=== PATIENT | female | born 1945 | race Asian ===

== ENCOUNTER 2018-04-21 18:05 | Emergency (ER) | payer MEDICARE, OTHER, MEDICAID ==
[2018-04-21] MEDS: HYDROCODONE/APAP (10/325) TAB PO (18:37)
[2018-04-21] MEDS: ONDANSETRON (ODT) 4 MG TAB ODT (18:37)
== END 2018-04-21 19:54 | disposition home or self-care (01) ==
LOC: E/R 18:05
DX: S49.92XA Unspecified injury of left shoulder and upper arm, initial encounter (principal); I10 Essential (primary) hypertension; W01.0XXA Fall on same level from slipping, tripping and stumbling without subsequent striking against object, initial encounter; Y92.9 Unspecified place or not applicable
CPT/HCPCS: 29105; 73030; 99283-25

== ENCOUNTER 2018-05-07 08:29 | Inpatient (IN) | payer MEDICARE, OTHER ==
[2018-05-07] MEDS: ONDANSETRON 4 MG INJ IV ×2 (09:31→19:19)
[2018-05-07] MEDS: SOD CHLORIDE 0.9% 1,000 ML IV (09:31)
[2018-05-07] MEDS: HYDROmorphONE 1 MG/ML SYG IV (09:31)
[2018-05-07 09:49] LABS: ADD MAN DIFF? NO
[2018-05-07 09:52] LABS: WHITE BLOOD COUNT 4.9 10^3/ul (4.8-10.8)
[2018-05-07 09:52] LABS: BASOPHIL # 0.1 10^3/ul (0.0-0.1); EOSINOPHILS % 0.6 % (0.0-7.0); HEMATOCRIT 40.5 % (37.0-47.0); HEMOGLOBIN 13.4 g/dl (12.0-16.0); LYMPHOCYTES # 1.5 10^3/ul (0.8-2.9); LYMPHOCYTES % 30.9 % (15.0-51.0); MEAN CORPUSCULAR HEMOGLOBIN 30.9 pg (29.0-33.0); MEAN CORPUSCULAR HGB CONC 33.1 g/dl (32.0-37.0); MEAN CORPUSCULAR VOLUME 93.3 fl (82.0-101.0); MEAN PLATELET VOLUME 9.7 fl (7.4-10.4); MONOCYTE # 0.4 10^3/ul (0.3-0.9); MONOCYTES % 7.6 % (0.0-11.0); NEUTROPHIL # 2.9 10^3/ul (1.6-7.5); NEUTROPHILS % 59.5 % (39.0-77.0); PLATELET COUNT 328 10^3/UL (140-415); RED BLOOD COUNT 4.34 10^6/ul (4.20-5.40)
[2018-05-07 10:31] LABS: ALANINE AMINOTRANSFERASE 36 IU/L (13-69); ALBUMIN 4.2 g/dl (3.3-4.9); ALBUMIN/GLOBULIN RATIO 1.16; ALKALINE PHOSPHATASE 131 IU/L (42-121); ANION GAP 12 (8-16); ASPARTATE AMINO TRANSFERASE 37 IU/L (15-46); BILIRUBIN,INDIRECT 0.7 mg/dl (0-1.1); BILIRUBIN,TOTAL 0.7 mg/dl (0.2-1.3); BLOOD UREA NITROGEN 16 mg/dl (7-20); CALCIUM 9.5 mg/dl (8.4-10.2); CARBON DIOXIDE 29 mmol/L (21-31); CHLORIDE 104 mmol/L (97-110); GLUCOSE 107 mg/dl (70-220); LIPASE 66 U/L (23-300); POTASSIUM 3.7 mmol/L (3.5-5.1); SODIUM 141 mmol/L (135-144); TOTAL PROTEIN 7.8 g/dl (6.1-8.1)
[2018-05-07] MEDS: IOHEXOL 300MG/ML 150 ML BTL (11:17)
[2018-05-07] MEDS: SOD CHLORIDE 0.9% 100 ML (11:17)
[2018-05-07] MEDS ORDERED: ACETAMINOPHEN 325 MG TAB PO (14:30)
[2018-05-07] MEDS ORDERED: ONDANSETRON 4 MG INJ IV (14:30)
[2018-05-07] MEDS ORDERED: NITROGLYCERIN (SL) 0.4 MG TAB SL (15:00)
[2018-05-07] MEDS ORDERED: ALBUTEROL/IPRATROPIUM (NEB) 3 ML AMP HHN (15:00)
[2018-05-07] MEDS ORDERED: NACL 0.9% 3 ML SYG IV (15:00)
[2018-05-07] MEDS ORDERED: hydrALAzine 20 MG INJ IV (15:00)
[2018-05-07] MEDS ORDERED: NA PHOSPHATE/BIPHOS 133 ML ENEMA PR (15:00)
[2018-05-07] MEDS ORDERED: morphine 2 MG INJ IV (15:00)
[2018-05-07 15:52] LABS: FREE T4 (FREE THYROXINE) 1.74 ng/dl (0.78-2.44)
[2018-05-07] MEDS: SOD CHLORIDE 0.45% 1,000 ML IV (18:52)
[2018-05-07] MEDS: PRAVASTATIN 20 MG TAB PO (20:09)
[2018-05-07] MEDS: HEPARIN 5,000 UNIT/0.5 ML VIAL SC (20:47)
[2018-05-07] MEDS ORDERED: NON-FORMULARY/PATIENT OWN MED (Pravastatin Sodium* 10 MG) PO (21:00)
[2018-05-07] MEDS: LORAZEPAM 2 MG INJ IV (22:48)
[2018-05-08] MEDS: SOD CHLORIDE 0.45% 1,000 ML IV ×3 (04:04→20:25)
[2018-05-08 05:12] LABS: ADD MAN DIFF? NO
[2018-05-08 05:14] LABS: WHITE BLOOD COUNT 5.7 10^3/ul (4.8-10.8)
[2018-05-08 05:14] LABS: BASOPHIL # 0.1 10^3/ul (0.0-0.1); BASOPHILS % 1.1 % (0.0-2.0); EOSINOPHILS % 0.5 % (0.0-7.0); HEMATOCRIT 37.5 % (37.0-47.0); HEMOGLOBIN 12.3 g/dl (12.0-16.0); LYMPHOCYTES % 35.9 % (15.0-51.0); MEAN CORPUSCULAR HEMOGLOBIN 30.2 pg (29.0-33.0); MEAN CORPUSCULAR HGB CONC 32.8 g/dl (32.0-37.0); MEAN CORPUSCULAR VOLUME 92.1 fl (82.0-101.0); MEAN PLATELET VOLUME 9.6 fl (7.4-10.4); MONOCYTE # 0.4 10^3/ul (0.3-0.9); MONOCYTES % 6.9 % (0.0-11.0); NEUTROPHIL # 3.1 10^3/ul (1.6-7.5); NEUTROPHILS % 55.4 % (39.0-77.0); PLATELET COUNT 280 10^3/UL (140-415); RED BLOOD COUNT 4.07 10^6/ul (4.20-5.40); RED CELL DISTRIBUTION WIDTH 12.1 % (11.5-14.5)
[2018-05-08 05:39] LABS: HEMOGLOBIN A1C 5.7 % (0-5.9)
[2018-05-08 05:46] LABS: ANION GAP 10 (8-16); BLOOD UREA NITROGEN 15 mg/dl (7-20); CALCIUM 8.9 mg/dl (8.4-10.2); CARBON DIOXIDE 26 mmol/L (21-31); CHLORIDE 106 mmol/L (97-110); CREATININE 0.61 mg/dl (0.44-1.00); GLUCOSE 80 mg/dl (70-220); PHOSPHORUS 3.2 mg/dl (2.5-4.9); POTASSIUM 3.6 mmol/L (3.5-5.1); SODIUM 138 mmol/L (135-144)
[2018-05-08 05:49] LABS: CHOL/HDL RATIO 2.4 RATIO; HDL CHOLESTEROL 70 mg/dl (33-92); LDL CHOLESTEROL,CALCULATED 84 mg/dl; TRIGLYCERIDES 73 mg/dl (0-149)
[2018-05-08 05:49] LABS: CHOLESTEROL 169 mg/dl (100-200)
[2018-05-08 06:12] LABS: THYROID STIMULATING HORMONE 0.715 MIU/L (0.465-4.680)
[2018-05-08] MEDS: PANTOPRAZOLE 40 MG INJ IV (06:56)
[2018-05-08] MEDS: CLOPIDOGREL 75 MG TAB PO (09:04)
[2018-05-08] MEDS: LOSARTAN 50 MG TAB PO (09:05)
[2018-05-08] MEDS: AMLODIPINE 5 MG TAB PO (09:05)
[2018-05-08] MEDS: HEPARIN 5,000 UNIT/0.5 ML VIAL SC ×2 (09:06→20:25)
[2018-05-08] MEDS: SUCRALFATE (100 MG/ML) 10ML CUP PO ×3 (13:07→20:25)
[2018-05-08] MEDS: ONDANSETRON 4 MG INJ IV (14:44)
[2018-05-08] MEDS ORDERED: morphine LIQ (10 MG/5 ML) CUP PO (19:00)
[2018-05-08] MEDS: PRAVASTATIN 20 MG TAB PO (20:25)
[2018-05-09 05:43] LABS: ADD MAN DIFF? NO
[2018-05-09 05:51] LABS: BASOPHIL # 0.1 10^3/ul (0.0-0.1); BASOPHILS % 0.8 % (0.0-2.0); EOSINOPHILS # 0.1 10^3/ul (0.0-0.5); HEMOGLOBIN 11.9 g/dl (12.0-16.0); LYMPHOCYTES # 2.4 10^3/ul (0.8-2.9); LYMPHOCYTES % 39.5 % (15.0-51.0); MEAN CORPUSCULAR HEMOGLOBIN 30.1 pg (29.0-33.0); MEAN CORPUSCULAR HGB CONC 33.1 g/dl (32.0-37.0); MEAN CORPUSCULAR VOLUME 91.1 fl (82.0-101.0); MEAN PLATELET VOLUME 9.6 fl (7.4-10.4); MONOCYTE # 0.4 10^3/ul (0.3-0.9); MONOCYTES % 6.5 % (0.0-11.0); NEUTROPHIL # 3.1 10^3/ul (1.6-7.5); NEUTROPHILS % 51.9 % (39.0-77.0); PLATELET COUNT 262 10^3/UL (140-415); RED BLOOD COUNT 3.95 10^6/ul (4.20-5.40); RED CELL DISTRIBUTION WIDTH 11.9 % (11.5-14.5)
[2018-05-09] MEDS: PANTOPRAZOLE 40 MG INJ IV (05:56)
[2018-05-09] MEDS: HYDROCODONE/APAP (5/325) TAB PO (05:56)
[2018-05-09] MEDS: ONDANSETRON 4 MG INJ IV (06:04)
[2018-05-09 06:07] LABS: ANION GAP 8 (8-16); BLOOD UREA NITROGEN 12 mg/dl (7-20); CARBON DIOXIDE 26 mmol/L (21-31); CHLORIDE 107 mmol/L (97-110); CREATININE 0.61 mg/dl (0.44-1.00); GLUCOSE 95 mg/dl (70-220); POTASSIUM 3.6 mmol/L (3.5-5.1); SODIUM 137 mmol/L (135-144)
[2018-05-09 06:20] LABS: MAGNESIUM 1.8 mg/dl (1.7-2.5)
[2018-05-09] MEDS: HEPARIN 5,000 UNIT/0.5 ML VIAL SC ×2 (08:29→21:01)
[2018-05-09] MEDS: AMLODIPINE 5 MG TAB PO (08:30)
[2018-05-09] MEDS: CLOPIDOGREL 75 MG TAB PO (08:30)
[2018-05-09] MEDS: SUCRALFATE (100 MG/ML) 10ML CUP PO ×4 (08:31→21:00)
[2018-05-09] MEDS: LOSARTAN 50 MG TAB PO (08:31)
[2018-05-09] MEDS: SOD CHLORIDE 0.45% 1,000 ML IV (10:48)
[2018-05-09] MEDS: PRAVASTATIN 20 MG TAB PO (21:00)
[2018-05-09] MEDS: LORAZEPAM 2 MG INJ IV (21:00)
[2018-05-10] MEDS: PANTOPRAZOLE 40 MG INJ IV (05:37)
[2018-05-10 07:06] LABS: ADD MAN DIFF? NO
[2018-05-10 07:09] LABS: WHITE BLOOD COUNT 5.5 10^3/ul (4.8-10.8)
[2018-05-10 07:09] LABS: BASOPHILS % 0.5 % (0.0-2.0); EOSINOPHILS # 0.1 10^3/ul (0.0-0.5); EOSINOPHILS % 1.3 % (0.0-7.0); HEMATOCRIT 37.3 % (37.0-47.0); HEMOGLOBIN 12.5 g/dl (12.0-16.0); LYMPHOCYTES % 35.9 % (15.0-51.0); MEAN CORPUSCULAR HEMOGLOBIN 30.3 pg (29.0-33.0); MEAN CORPUSCULAR HGB CONC 33.5 g/dl (32.0-37.0); MEAN CORPUSCULAR VOLUME 90.5 fl (82.0-101.0); MEAN PLATELET VOLUME 9.7 fl (7.4-10.4); MONOCYTE # 0.4 10^3/ul (0.3-0.9); MONOCYTES % 7.6 % (0.0-11.0); NEUTROPHILS % 54.5 % (39.0-77.0); PLATELET COUNT 267 10^3/UL (140-415); RED BLOOD COUNT 4.12 10^6/ul (4.20-5.40); RED CELL DISTRIBUTION WIDTH 12.1 % (11.5-14.5)
[2018-05-10 07:35] LABS: ANION GAP 11 (8-16); BLOOD UREA NITROGEN 11 mg/dl (7-20); CALCIUM 9.1 mg/dl (8.4-10.2); CARBON DIOXIDE 28 mmol/L (21-31); CHLORIDE 105 mmol/L (97-110); GLUCOSE 105 mg/dl (70-220); POTASSIUM 3.5 mmol/L (3.5-5.1); SODIUM 140 mmol/L (135-144)
[2018-05-10] MEDS: SUCRALFATE (100 MG/ML) 10ML CUP PO ×4 (08:47→20:38)
[2018-05-10] MEDS: LOSARTAN 50 MG TAB PO (08:47)
[2018-05-10] MEDS: CLOPIDOGREL 75 MG TAB PO (08:47)
[2018-05-10] MEDS: AMLODIPINE 5 MG TAB PO (08:48)
[2018-05-10] MEDS: HEPARIN 5,000 UNIT/0.5 ML VIAL SC ×2 (08:50→20:40)
[2018-05-10] MEDS: POTASSIUM CHLORIDE (SR) 20 MEQ TAB PO (09:49)
[2018-05-10] MEDS: PRAVASTATIN 20 MG TAB PO (20:38)
[2018-05-11 05:35] LABS: ADD MAN DIFF? NO
[2018-05-11 05:47] LABS: BASOPHILS % 0.8 % (0.0-2.0); EOSINOPHILS # 0.1 10^3/ul (0.0-0.5); EOSINOPHILS % 1.4 % (0.0-7.0); HEMATOCRIT 38.3 % (37.0-47.0); HEMOGLOBIN 12.9 g/dl (12.0-16.0); LYMPHOCYTES # 2.6 10^3/ul (0.8-2.9); LYMPHOCYTES % 51.5 % (15.0-51.0); MEAN CORPUSCULAR HEMOGLOBIN 30.9 pg (29.0-33.0); MEAN CORPUSCULAR HGB CONC 33.7 g/dl (32.0-37.0); MEAN CORPUSCULAR VOLUME 91.8 fl (82.0-101.0); MONOCYTE # 0.3 10^3/ul (0.3-0.9); MONOCYTES % 6.9 % (0.0-11.0); NEUTROPHIL # 1.9 10^3/ul (1.6-7.5); NEUTROPHILS % 39.2 % (39.0-77.0); PLATELET COUNT 276 10^3/UL (140-415); RED BLOOD COUNT 4.17 10^6/ul (4.20-5.40); RED CELL DISTRIBUTION WIDTH 12.2 % (11.5-14.5)
[2018-05-11] MEDS: PANTOPRAZOLE 40 MG INJ IV (05:49)
[2018-05-11 06:39] LABS: ANION GAP 11 (8-16); BLOOD UREA NITROGEN 14 mg/dl (7-20); CALCIUM 9.5 mg/dl (8.4-10.2); CARBON DIOXIDE 29 mmol/L (21-31); CHLORIDE 104 mmol/L (97-110); CREATININE 0.65 mg/dl (0.44-1.00); GLUCOSE 105 mg/dl (70-220); SODIUM 140 mmol/L (135-144)
[2018-05-11] MEDS: CLOPIDOGREL 75 MG TAB PO (08:55)
[2018-05-11] MEDS: HEPARIN 5,000 UNIT/0.5 ML VIAL SC ×2 (08:56→20:44)
[2018-05-11] MEDS: SUCRALFATE (100 MG/ML) 10ML CUP PO ×4 (08:57→20:38)
[2018-05-11] MEDS: LOSARTAN 50 MG TAB PO (08:57)
[2018-05-11] MEDS: AMLODIPINE 5 MG TAB PO (08:57)
[2018-05-11] MEDS: MAGNESIUM HYDROXIDE 30ML CUP PO (10:32)
[2018-05-11] MEDS: DOCUSATE SODIUM 100 MG CAP PO (13:52)
[2018-05-11] MEDS: ACETAMINOPHEN 325 MG TAB PO (20:38)
[2018-05-11] MEDS: PRAVASTATIN 20 MG TAB PO (20:41)
[2018-05-12] MEDS: PANTOPRAZOLE 40 MG INJ IV (05:44)
[2018-05-12 05:57] LABS: ADD MAN DIFF? NO
[2018-05-12 06:02] LABS: BASOPHILS % 0.7 % (0.0-2.0); EOSINOPHILS # 0.1 10^3/ul (0.0-0.5); EOSINOPHILS % 1.6 % (0.0-7.0); HEMATOCRIT 38.2 % (37.0-47.0); HEMOGLOBIN 12.8 g/dl (12.0-16.0); LYMPHOCYTES # 2.7 10^3/ul (0.8-2.9); LYMPHOCYTES % 48.6 % (15.0-51.0); MEAN CORPUSCULAR HEMOGLOBIN 30.6 pg (29.0-33.0); MEAN CORPUSCULAR HGB CONC 33.5 g/dl (32.0-37.0); MEAN CORPUSCULAR VOLUME 91.4 fl (82.0-101.0); MEAN PLATELET VOLUME 10.3 fl (7.4-10.4); MONOCYTE # 0.4 10^3/ul (0.3-0.9); MONOCYTES % 6.4 % (0.0-11.0); NEUTROPHIL # 2.4 10^3/ul (1.6-7.5); NEUTROPHILS % 42.3 % (39.0-77.0); PLATELET COUNT 264 10^3/UL (140-415); RED BLOOD COUNT 4.18 10^6/ul (4.20-5.40); RED CELL DISTRIBUTION WIDTH 12.4 % (11.5-14.5)
[2018-05-12 06:02] LABS: WHITE BLOOD COUNT 5.6 10^3/ul (4.8-10.8)
[2018-05-12 06:33] LABS: ANION GAP 16 (8-16); BLOOD UREA NITROGEN 15 mg/dl (7-20); CALCIUM 9.3 mg/dl (8.4-10.2); CARBON DIOXIDE 28 mmol/L (21-31); CHLORIDE 104 mmol/L (97-110); GLUCOSE 102 mg/dl (70-220); POTASSIUM 4.1 mmol/L (3.5-5.1); SODIUM 144 mmol/L (135-144)
[2018-05-12] MEDS: CLOPIDOGREL 75 MG TAB PO (09:02)
[2018-05-12] MEDS: SUCRALFATE (100 MG/ML) 10ML CUP PO ×4 (09:02→21:24)
[2018-05-12] MEDS: AMLODIPINE 5 MG TAB PO (09:03)
[2018-05-12] MEDS: LOSARTAN 50 MG TAB PO (09:03)
[2018-05-12] MEDS: HEPARIN 5,000 UNIT/0.5 ML VIAL SC ×2 (09:06→21:26)
[2018-05-12] MEDS: PRAVASTATIN 20 MG TAB PO (21:24)
[2018-05-12] MEDS: ACETAMINOPHEN 325 MG TAB PO (21:24)
[2018-05-13 05:11] LABS: ADD MAN DIFF? NO; BASOPHILS % 0.8 % (0.0-2.0); EOSINOPHILS # 0.1 10^3/ul (0.0-0.5); EOSINOPHILS % 1.5 % (0.0-7.0); HEMATOCRIT 40.3 % (37.0-47.0); HEMOGLOBIN 13.3 g/dl (12.0-16.0); LYMPHOCYTES # 2.4 10^3/ul (0.8-2.9); LYMPHOCYTES % 44.4 % (15.0-51.0); MEAN CORPUSCULAR HEMOGLOBIN 30.5 pg (29.0-33.0); MEAN CORPUSCULAR VOLUME 92.4 fl (82.0-101.0); MONOCYTE # 0.4 10^3/ul (0.3-0.9); MONOCYTES % 6.8 % (0.0-11.0); NEUTROPHIL # 2.4 10^3/ul (1.6-7.5); NEUTROPHILS % 46.1 % (39.0-77.0); PLATELET COUNT 285 10^3/UL (140-415); RED BLOOD COUNT 4.36 10^6/ul (4.20-5.40); RED CELL DISTRIBUTION WIDTH 12.2 % (11.5-14.5)
[2018-05-13 05:11] LABS: WHITE BLOOD COUNT 5.3 10^3/ul (4.8-10.8)
[2018-05-13] MEDS: PANTOPRAZOLE 40 MG INJ IV (05:33)
[2018-05-13 05:42] LABS: ANION GAP 10 (8-16); BLOOD UREA NITROGEN 21 mg/dl (7-20); CALCIUM 9.9 mg/dl (8.4-10.2); CARBON DIOXIDE 28 mmol/L (21-31); CHLORIDE 105 mmol/L (97-110); CREATININE 0.77 mg/dl (0.44-1.00); GLUCOSE 111 mg/dl (70-220); POTASSIUM 4.4 mmol/L (3.5-5.1); SODIUM 139 mmol/L (135-144)
[2018-05-13] MEDS: SUCRALFATE (100 MG/ML) 10ML CUP PO ×4 (08:50→21:29)
[2018-05-13] MEDS: CLOPIDOGREL 75 MG TAB PO (08:50)
[2018-05-13] MEDS: LOSARTAN 50 MG TAB PO (08:50)
[2018-05-13] MEDS: HEPARIN 5,000 UNIT/0.5 ML VIAL SC ×2 (08:53→21:46)
[2018-05-13] MEDS: ACETAMINOPHEN 325 MG TAB PO (08:58)
[2018-05-13] MEDS: PRAVASTATIN 20 MG TAB PO (21:29)
[2018-05-14] MEDS: PANTOPRAZOLE 40 MG INJ IV (05:52)
[2018-05-14 06:05] LABS: ADD MAN DIFF? NO
[2018-05-14 06:14] LABS: BASOPHILS % 0.7 % (0.0-2.0); EOSINOPHILS # 0.1 10^3/ul (0.0-0.5); EOSINOPHILS % 1.4 % (0.0-7.0); HEMOGLOBIN 13.5 g/dl (12.0-16.0); LYMPHOCYTES # 2.6 10^3/ul (0.8-2.9); LYMPHOCYTES % 45.3 % (15.0-51.0); MEAN CORPUSCULAR HEMOGLOBIN 30.8 pg (29.0-33.0); MEAN CORPUSCULAR HGB CONC 32.9 g/dl (32.0-37.0); MEAN CORPUSCULAR VOLUME 93.6 fl (82.0-101.0); MEAN PLATELET VOLUME 10.4 fl (7.4-10.4); MONOCYTE # 0.4 10^3/ul (0.3-0.9); MONOCYTES % 6.3 % (0.0-11.0); NEUTROPHIL # 2.6 10^3/ul (1.6-7.5); NEUTROPHILS % 46.1 % (39.0-77.0); PLATELET COUNT 293 10^3/UL (140-415); RED BLOOD COUNT 4.38 10^6/ul (4.20-5.40); RED CELL DISTRIBUTION WIDTH 12.5 % (11.5-14.5)
[2018-05-14 06:14] LABS: WHITE BLOOD COUNT 5.7 10^3/ul (4.8-10.8)
[2018-05-14] MEDS: ACETAMINOPHEN 325 MG TAB PO ×2 (06:18→17:28)
[2018-05-14 06:48] LABS: ANION GAP 15 (8-16); BLOOD UREA NITROGEN 22 mg/dl (7-20); CALCIUM 9.8 mg/dl (8.4-10.2); CARBON DIOXIDE 29 mmol/L (21-31); CHLORIDE 103 mmol/L (97-110); CREATININE 0.76 mg/dl (0.44-1.00); GLUCOSE 101 mg/dl (70-220); SODIUM 142 mmol/L (135-144)
[2018-05-14] MEDS: LOSARTAN 50 MG TAB PO (09:00)
[2018-05-14] MEDS: SUCRALFATE (100 MG/ML) 10ML CUP PO ×4 (09:14→20:20)
[2018-05-14] MEDS: CLOPIDOGREL 75 MG TAB PO (09:14)
[2018-05-14] MEDS: HEPARIN 5,000 UNIT/0.5 ML VIAL SC ×2 (09:18→20:21)
[2018-05-14] MEDS: PRAVASTATIN 20 MG TAB PO (20:20)
[2018-05-15 05:33] LABS: ADD MAN DIFF? NO
[2018-05-15] MEDS: PANTOPRAZOLE 40 MG INJ IV (05:42)
[2018-05-15 05:53] LABS: ANION GAP 11 (8-16); BLOOD UREA NITROGEN 23 mg/dl (7-20); CALCIUM 9.7 mg/dl (8.4-10.2); CARBON DIOXIDE 28 mmol/L (21-31); CHLORIDE 105 mmol/L (97-110); CREATININE 0.72 mg/dl (0.44-1.00); GLUCOSE 98 mg/dl (70-220); POTASSIUM 4.6 mmol/L (3.5-5.1); SODIUM 139 mmol/L (135-144)
[2018-05-15 05:55] LABS: WHITE BLOOD COUNT 5.1 10^3/ul (4.8-10.8)
[2018-05-15 05:55] LABS: BASOPHILS % 0.8 % (0.0-2.0); EOSINOPHILS # 0.1 10^3/ul (0.0-0.5); EOSINOPHILS % 1.6 % (0.0-7.0); HEMATOCRIT 39.1 % (37.0-47.0); HEMOGLOBIN 12.8 g/dl (12.0-16.0); LYMPHOCYTES # 2.5 10^3/ul (0.8-2.9); LYMPHOCYTES % 48.8 % (15.0-51.0); MEAN CORPUSCULAR HEMOGLOBIN 30.3 pg (29.0-33.0); MEAN CORPUSCULAR HGB CONC 32.7 g/dl (32.0-37.0); MEAN CORPUSCULAR VOLUME 92.7 fl (82.0-101.0); MEAN PLATELET VOLUME 10.6 fl (7.4-10.4); MONOCYTE # 0.3 10^3/ul (0.3-0.9); MONOCYTES % 6.3 % (0.0-11.0); NEUTROPHIL # 2.1 10^3/ul (1.6-7.5); NEUTROPHILS % 42.3 % (39.0-77.0); PLATELET COUNT 267 10^3/UL (140-415); RED BLOOD COUNT 4.22 10^6/ul (4.20-5.40); RED CELL DISTRIBUTION WIDTH 12.7 % (11.5-14.5)
[2018-05-15] MEDS: SUCRALFATE (100 MG/ML) 10ML CUP PO ×3 (08:35→16:59)
[2018-05-15] MEDS: CLOPIDOGREL 75 MG TAB PO (08:36)
[2018-05-15] MEDS: LOSARTAN 50 MG TAB PO (08:36)
[2018-05-15] MEDS: HEPARIN 5,000 UNIT/0.5 ML VIAL SC (08:37)
[2018-05-15] MEDS: ACETAMINOPHEN 325 MG TAB PO (18:15)
== END 2018-05-15 18:35 | DRG 552 ==
LOC: E/R 08:29 → MS1 14:26
DX: S22.070A Wedge compression fracture of T9-T10 vertebra, initial encounter for closed fracture (principal); I69.354 Hemiplegia and hemiparesis following cerebral infarction affecting left non-dominant side; W19.XXXA Unspecified fall, initial encounter; R11.2 Nausea with vomiting, unspecified; R19.7 Diarrhea, unspecified; I10 Essential (primary) hypertension; E78.5 Hyperlipidemia, unspecified
CPT/HCPCS: 36415; 74177; 80048; 80053; 80061; 83036; 83690; 83735; 84100; 84439; 84443; 85025; 92610; 96374; 96375; 97110; 97116; 97163; 97167; 97530; 97535; 99285-25